=== PATIENT | female | born 1995 | race Hispanic/Latino ===

== ENCOUNTER 2018-09-10 12:51 | Emergency (ER) | payer OTHER ==
[2018-09-10 13:02] VITALS: O2SAT 100
[2018-09-10] MEDS: Lactated Ringer's 1,000 ML IV SCH ×3 (15:05→16:46)
[2018-09-10 15:25] LABS: BASO % 0.2 % (0.0-2.0); HEMOGLOBIN 15.6 g/dL (12.0-16.0); LYMPH # 0.6 K/uL (1.0-4.3); LYMPH % 4.9 % (20.0-40.0); MEAN CELL VOLUME 89.6 fl (81.0-99.0); MEAN CORPUSCULAR HEMOGLOBIN 29.9 pg (27.0-31.0); MEAN CORPUSCULAR HGB CONC 33.3 g/dL (33.0-37.0); MONO # 0.5 K/uL (0.0-0.8); MONO % 3.6 % (0.0-10.0); NEUT # 11.9 K/uL (1.8-7.0); NEUT % 91.3 % (50.0-75.0); PLATELET COUNT 332 K/uL (130-400); RBC 5.22 Mil/uL (3.80-5.20); RED CELL DISTRIBUTION WIDTH 13.4 % (11.5-14.5)
[2018-09-10 15:57] LABS: ALB/GLOB RATIO 1.3 (1.0-2.1); ALBUMIN 4.8 g/dL (3.5-5.0); ALT/SGPT 36 U/L (9-52); AST/SGOT 32 U/L (14-36); BLOOD UREA NITROGEN 13 mg/dl (7-17); CALCIUM 10.1 mg/dL (8.4-10.2); GFR NON-AFRICAN AMERICAN > 60; LIPASE 91 U/L (23-300)
--- NOTE | 2018-09-10 16:39 | ED PDOC ---
HPI: Abdomen Time Seen by Provider: 09/10/18 13:27 Chief Complaint (Nursing): GI Problem Chief Complaint (Provider): GI Problem History/Exam Limitations: no limitations Onset/Duration Of Symptoms: Hrs Current Symptoms Are (Timing): Still Present Quality Of Discomfort: Cramping Associated Symptoms: Vomiting, Diarrhea Additional Complaint(s): 23 y/o female with no significant PMHx presents to the ED for evaluation of multiple episodes of vomiting and large stools since last night. Patient notes of having went to the bathroom multiple times last night. Patient states she cannot tolerate PO. Patient additionally reports of experiencing abdominal pain described as cramping that is relieved with bowel movements. Patient states symptoms return over time. Otherwise, patient denies fever, sick contacts and known food exposures. PMD: none provided Past Medical History Reviewed: Historical Data, Nursing Documentation, Vital Signs Vital Signs: Last Vital Signs Temp 97.6 F 09/10/18 13:01 Pulse 101 H 09/10/18 13:01 Resp 20 09/10/18 13:01 BP 117/76 09/10/18 13:01 Pulse Ox 100 09/10/18 13:01 - Medical History PMH: No Chronic Diseases - Surgical History Surgical History: No Surg Hx - Family History Family History: States: Unknown Family Hx - Home Medications Home Medications: Ambulatory Orders Medication Instructions Recorded Dicyclomine [Bentyl] 10 mg PO QID PRN #10 cap 09/10/18 Ondansetron ODT [Zofran ODT] 4 mg PO Q6 PRN #10 odt 09/10/18 - Allergies Allergies/Adverse Reactions: Allergies Allergy/AdvReac Type Severity Reaction Status Date / Time No Known Allergies Allergy Verified 09/10/18 13:01 Review of Systems ROS Statement: Except As Marked, All Systems Reviewed And Found Negative Constitutional: Negative for: Fever Gastrointestinal: Positive for: Vomiting, Abdominal Pain, Diarrhea Physical Exam - Reviewed Nursing Documentation Reviewed: Yes Vital Signs Reviewed: Yes - Physical Exam Appears: Positive for: No Acute Distress Head Exam: Positive for: ATRAUMATIC Skin: Positive for: Normal Color, Warm, Dry Eye Exam: Positive for: Normal appearance, EOMI Neck: Positive for: Normal Cardiovascular/Chest: Positive for: Regular Rate, Rhythm. Negative for: Murmur Respiratory: Positive for: Normal Breath Sounds. Negative for: Respiratory Distress Gastrointestinal/Abdominal: Negative for: Tenderness (No focal tenderness including RLQ) Extremity: Positive for: Normal ROM. Negative for: Deformity Neurological/Psych: Positive for: Awake, Alert, Oriented (x3). Negative for: Motor/Sensory Deficits - Laboratory Results Result Diagrams: 09/10/18 15:19 09/10/18 15:19 Lab Results: Total Bilirubin 0.3 mg/dl (0.2-1.3) 09/10/18 15: AST 32 U/L (14-36) 09/10/18 15: ALT 36 U/L (9-52) 09/10/18 15: Alkaline Phosphatase 60 U/L (38-126) 09/10/18 15: Total Protein 8.5 G/DL (6.3-8.2) H 09/10/18 15: Albumin 4.8 g/dL (3.5-5.0) 09/10/18 15: Globulin 3.8 gm/dL (2.2-3.9) 09/10/18 15: Albumin/Globulin Ratio 1.3 (1.0-2.1) 09/10/18 15: Lipase 91 U/L (23-300) 09/10/18 15:19 - ECG O2 Sat by Pulse Oximetry: 100 (RA) Pulse Ox Interpretation: Normal Medical Decision Making Medical Decision Making: Time: 1436 Impression: Vomiting, Diarrhea and Abdominal Pain Plan: -- CMP -- Lipase -- Magnesium -- ED Urine -- ED Urine Dipstick -- CBC with Differentials -- Bentyl 10 mg PO -- Lactated Ringer's IV 1000 mls/hr -- Pepcid 20 mg IV -- Toradol 15 mg IVP -- Zofan Inj 4 mg IV labs reviewed revel mild elev WBC and dehydration IVF bolus given w bentyl and antiemetic, toradol w marked improvement 640p re-eval feels much better, no pain, tolerated PO DC w zofran and bentyl, followup instructions given and indications for return discussed. Scribe Attestation: Documented by Enrique Mayberry, acting as a scribe for Dwaine Conner III, DO. Provider Scribe Attestation: All medical record entries made by the Scribe were at my direction and personally dictated by me. I have reviewed the chart and agree that the record accurately reflects my personal performance of the history, physical exam, medical decision making, and the department course for this patient. I have also personally directed, reviewed, and agree with the discharge instructions and d isposition. Disposition - Clinical Impression Clinical Impression: Gastroenteritis - Patient ED Disposition Is Patient to be Admitted: No Counseled Patient/Family Regarding: Studies Performed, Diagnosis, Need For Followup, Rx Given - Disposition Referrals: Andrea Rivera MD [Medical Doctor] - Disposition: Routine/Home Disposition Time: 18:51 Condition: IMPROVED Additional Instructions: Drink plenty of fluids today and tomorrow, avoid milk/dairy, alcohol and caffeine. Return to ER for any pain, fever, return of symptoms or any concern. Wash hands well, avoid close contact with others for 2 days. Prescriptions: Dicyclomine [Bentyl] 10 mg PO QID PRN #10 cap PRN Reason: Gi Distress Ondansetron ODT [Zofran ODT] 4 mg PO Q6 PRN #10 odt PRN Reason: Nausea/Vomiting Instructions: Dehydration, Adult (DC), Diarrhea and Traveler's Diarrhea, Adult (DC), Nausea and Vomiting, Adult (DC) Forms: [facility] ([place]), [facility] ED School/Work Excuse
[2018-09-10 17:35] VITALS: BP 116/63; PULSE 75; RESP 16; TEMP 97.8
[2018-09-10 20:44] LABS: BANDS 4 % (0-2); LYMPHOCYTE 6 % (20-50); MONOCYTE 4 % (0-10); NEUTROPHIL 86 % (42-75); PLATELET ESTIMATE NORMAL (NORMAL); TOTAL CELLS COUNTED 100
[2018-09-10 20:45] LABS: ANISOCYTOSIS SLIGHT; HYPOCHROMIC SLIGHT
== END 2018-09-10 19:10 | disposition home or self-care (01) ==
LOC: H.ER 12:51
DX: K52.9 Noninfective gastroenteritis and colitis, unspecified (principal); E86.0 Dehydration
CPT/HCPCS: 80053; 81025; 83690; 83735; 85025; 96360; 99285; J2405; J7120